=== PATIENT | female | born 1945 | race Caucasian/White ===

== ENCOUNTER 2018-08-08 00:38 | Emergency (ER) | payer OTHER, MEDICARE ==
--- NOTE | 2018-08-08 01:03 | EDM.PDOC ---
ED HPI GENERAL MEDICAL PROBLEM - General Chief Complaint: Lower Extremity Injury/Pain Stated Complaint: SWELLING IN LEGS PAIN Time Seen by Provider: 08/08/18 00:49 - History of Present Illness INITIAL COMMENTS - FREE TEXT/NARRATIVE: 72-year-old female presents emergency room brought in by family members with increasing lower extremity edema The patient has cardiomyopathy she is uncertain what type. Over the last couple of days she's had increasing lower extremity edema. It doesn't get whenever walking she has not having any increased breathing difficulties or shortness of breath no worsening cough. She's not had any associated chest pain chest pressure. The patient recently had her benazepril decreased from 20 mg twice a day to once a day and she supposed to have follow-up blood work for this it's plausible that this could be a trigger.. The patient's and cardiomyopathy for 35 years. She's next smoker does not use illicit drugs or alcohol. She is having no chest pain chest pressure or discomfort of any kind tonight. Lower Back Pain Score (Numeric/FACES): 9 - Related Data Allergies Allergy/AdvReac Type Severity Reaction Status Date / Time Unable to Assess Allergy Unverified 08/08/18 00:53 Home Meds: Home Meds Benazepril [Lotensin] 20 mg PO DAILY 08/08/18 [History] Cyclobenzaprine [Flexeril] 5 mg PO BID PRN 08/08/18 [History] Diltiazem HCl [Diltiazem ER] 45 mg PO 1200 08/08/18 [History] Diltiazem HCl [Diltiazem ER] 90 mg PO BID 08/08/18 [History] Furosemide [Lasix] 20 mg PO DAILY #7 tab 08/08/18 [Rx] Hydrocodone/Acetaminophen [[place] 10-325 Tablet] 2 tab PO BID 08/08/18 [History] Potassium Chloride [Klor-Con M20] 20 meq PO Q24H #7 tab.er 08/08/18 [Rx] Sulfamethoxazole/Trimethoprim [Bactrim Ds Tablet] 1 each PO BID PRN 08/08/18 [ History] Zolpidem [Ambien] 10 mg PO BEDTIME 08/08/18 [History] metFORMIN [Glucophage XR] 500 mg PO BIDMEALS 08/08/18 [History] Review of Systems - Review of Systems Review Of Systems: See Below Constitutional: Reports: No Symptoms Eyes: Reports: No Symptoms Ears: Reports: No Symptoms Nose: Reports: No Symptoms Mouth/Throat: Reports: No Symptoms Respiratory: Reports: No Symptoms Cardiovascular: Reports: Edema GI/Abdominal: Reports: No Symptoms Musculoskeletal: Reports: Other (Significant back problems and arthritis) Skin: Reports: No Symptoms Neurological: Reports: No Symptoms Psychiatric: Reports: No Symptoms ED EXAM, GENERAL - Physical Exam Exam: See Below Exam Limited By: No Limitations General Appearance: Alert, No Apparent Distress Nose: Normal Inspection Throat/Mouth: Normal Inspection, Normal Lips, Normal Gums, Normal Oropharynx, Normal Voice, No Airway Compromise Head: Atraumatic, Normocephalic Neck: Normal Inspection, Supple, Non-Tender, Full Range of Motion. No: Lymphadenopathy (L), Lymphadenopathy (R) Respiratory/Chest: No Respiratory Distress, Lungs Clear, Normal Breath Sounds Cardiovascular: Normal Peripheral Pulses, Regular Rate, Rhythm, No Edema, Other (She has pitting edema in her lower extremities from the knees on down this is very thin less than 1+) GI/Abdominal: Normal Bowel Sounds, Soft, Non-Tender Back Exam: Normal Inspection. No: CVA Tenderness (L), CVA Tenderness (R) Extremities: Normal Inspection, Other (She has some vague tenderness in her lower extremities mild pitting edema) Neurological: Alert, Oriented, Normal Cognition Course - Vital Signs Last Recorded V/S: Last Vital Signs Temp 36.4 C 08/08/18 00:47 Pulse 69 08/08/18 00:47 Resp 16 08/08/18 00:47 BP 198/75 H 08/08/18 00:47 Pulse Ox 93 L 08/08/18 00:47 - Orders/Labs/Meds Orders: Active Orders 24 hr Category Date Time Status EKG Documentation Completion [RC] STAT Care 08/08/18 01:12 Active Chest 1V Frontal [CR] Stat Exams 08/08/18 01:11 Taken Labs: Laboratory Tests 08/08/18 08/08/18 08/08/18 Range/Units 01:32 01:32 01:32 WBC 8.69 (3.98-10.04) K/mm3 RBC 3.96 L (3.98-5.22) M/mm3 Hgb 11.8 (11.2-15.7) gm/L Hct 34.9 (34.1-44.9) % MCV 88.1 (79.4-94.8) fl MCH 29.8 (25.6-32.2) pg MCHC 33.8 (32.2-35.5) g/dl RDW Std Deviation 40.2 (36.4-46.3) fL Plt Count 350 (182-369) K/mm3 MPV 8.9 L (9.4-12.3) fl Neutrophils % (Manual) 51 (40-60) % Band Neutrophils % 0 (0-10) % Lymphocytes % (Manual) 29 (20-40) % Atypical Lymphs % 0 % Monocytes % (Manual) 16 H (2-10) % Eosinophils % (Manual) 2 (0.7-5.8) % Basophils % (Manual) 2 H (0.1-1.2) Platelet Estimate Adequate Plt Morphology Comment Normal RBC Morph Comment Normal Sodium 135 L (136-145) mEq/L Potassium 3.5 (3.5-5.1) mEq/L Chloride 99 (98-107) mEq/L Carbon Dioxide 26 (21-32) mEq/L Anion Gap 13.5 (5-15) BUN 11 (7-18) mg/dL Creatinine 0.7 (0.55-1.02) mg/dL Est Cr Clr Drug Dosing TNP Estimated GFR (MDRD) > 60 (>60) mL/min BUN/Creatinine Ratio 15.7 (14-18) Glucose 194 H (83-115) mg/dL Calcium 9.6 (8.5-10.1) mg/dL Total Bilirubin 0.3 (0.2-1.0) mg/dL AST 16 (15-37) U/L ALT 23 (14-59) U/L Alkaline Phosphatase 65 (46-116) U/L Troponin I < 0.017 (0.00-0.056) ng/mL NT-Pro-B Natriuret Pep 392 H (0-125) pg/mL Total Protein 7.4 (6.4-8.2) g/dl Albumin 4.0 (3.4-5.0) g/dl Globulin 3.4 gm/dL Albumin/Globulin Ratio 1.2 (1-2) Meds: Medications Discontinued Medications Generic Name Dose Route Start Last Admin Trade Name Freq PRN Reason Stop Dose Admin Furosemide 40 mg 08/08/18 03:00 Lasix PO 08/08/18 03:01 ONETIME ONE Potassium Chloride 40 meq 08/08/18 03:00 Klor-Con M20 PO 08/08/18 03:01 ONETIME ONE - Re-Assessments/Exams Free Text/Narrative Re-Assessment/Exam: 08/08/18 03:04 Patient's proBNP is indeed elevated she does not want to stay any longer would like to go home her blood pressures up on to give her 40 mg by mouth Lasix and 40 mEq of potassium. Will have her take Lasix 20 mg and 20 mEq of potassium daily 1 week's worth have her follow-up with regular doctor as soon she can get in for blood pressure check. Departure - Departure Time of Disposition: 03:05 Disposition: Home, Self-Care 01 Clinical Impression: Heart failure - Discharge Information Prescriptions: Furosemide [Lasix] 20 mg PO DAILY #7 tab Potassium Chloride [Klor-Con M20] 20 meq PO Q24H #7 tab.er Referrals: Wili Gordillo Jr, MD [Primary Care Provider] - Forms: ED Department Discharge Additional Instructions: Return to the emergency room with any questions or problems or worsening symptoms. Follow-up with your regular provider at the end of this week her first part of next week. Take the medications as directed hold the furosemide and potassium if her blood pressure gets too low to upper number consistently below 120 - My Orders Last 24 Hours: My Active Orders 08/08/18 01:11 Chest 1V Frontal [CR] Stat 08/08/18 01:12 EKG Documentation Completion [RC] STAT - Assessment/Plan Last 24 Hours: My Active Orders 08/08/18 01:11 Chest 1V Frontal [CR] Stat 08/08/18 01:12 EKG Documentation Completion [RC] STAT
[2018-08-08] MEDS ORDERED: Potassium Chloride 20 MEQ Tab.ER PO ONE (03:00)
[2018-08-08] MEDS ORDERED: Furosemide 40 MG Tab PO ONE (03:00)
--- NOTE | 2018-08-08 08:56 | CR ---
Chest: Portable view of the chest was obtained. Comparison: No prior chest x-ray is available. Heart size and mediastinum are within normal limits. Lungs are clear with no acute-appearing parenchymal change. Small nodule is partially visualized within the left upper lung most likely representing costochondral calcification or less likely a granuloma. Lungs are slightly hyperinflated suggesting emphysematous change. Minimal scoliosis is noted within the spine. Impression: 1. Probable emphysematous change. 2. Other incidental findings. 3. Nothing acute is identified. Diagnostic code #2
== END 2018-08-08 03:18 | disposition home or self-care (01) ==
LOC: JD.ED 00:38
DX: I50.9 Heart failure, unspecified (principal); Z79.899 Other long term (current) drug therapy
CPT/HCPCS: 36415; 71045; 80053; 83880; 84484; 85007; 85027; 93005; 99285; A9270; 93010; 99283

== ENCOUNTER 2020-07-29 23:22 | Emergency (ER) | payer MEDICARE ==
--- NOTE | 2020-07-30 00:38 | EDM.PDOC ---
ED HPI GENERAL MEDICAL PROBLEM - General Chief Complaint: Gastrointestinal Problem Stated Complaint: DIARRHEA/VOMITTING/HEADACHE Time Seen by Provider: 07/30/20 00:28 - History of Present Illness INITIAL COMMENTS - FREE TEXT/NARRATIVE: 74-year-old female presents the emergency room with nausea diarrhea and not feeling well. She has developed a headache as well. Of note upon arrival here is her blood pressure is quite elevated. Patient states that her blood pressure is usually very well controlled and the numbers she recites agree with this, at present she is 231/96. She denies any chest pain or chest pressure or breathing difficulties. She complains of loose stools and generally not feeling well with some nausea and vomiting this started Sunday evening over 24 hours ago. - Related Data Allergies Allergy/AdvReac Type Severity Reaction Status Date / Time amlodipine Allergy Cannot Verified 07/30/20 03:24 Remember carbamazepine [From Tegretol] Allergy Cannot Verified 07/30/20 03:24 Remember codeine Allergy Cannot Verified 07/30/20 03:24 Remember diazepam [From Valium] Allergy Cannot Verified 07/30/20 03:24 Remember gabapentin [From Neurontin] Allergy Cannot Verified 07/30/20 03:24 Remember lisinopril Allergy Cannot Verified 07/30/20 03:24 Remember meclofenamic acid Allergy Cannot Verified 07/30/20 03:24 [From Meclomen] Remember methadone Allergy Cannot Verified 07/30/20 03:24 Remember NSAIDS (Non-Steroidal Allergy Cannot Verified 07/30/20 03:24 Anti-Inflamma Remember oxycodone Allergy Cannot Verified 07/30/20 03:24 Remember pentazocine [From Talwin] Allergy Cannot Verified 07/30/20 03:24 Remember tramadol [From Ultram] Allergy Cannot Verified 07/30/20 03:24 Remember trazodone Allergy Cannot Verified 07/30/20 03:24 Remember darvan Allergy Cannot Uncoded 07/30/20 03:24 Remember IV Contrast Allergy Cannot Uncoded 07/30/20 03:24 Remember repal Allergy Cannot Uncoded 07/30/20 03:24 Remember senequan Allergy Cannot Uncoded 07/30/20 03:24 Remember zomax Allergy Cannot Uncoded 07/30/20 03:24 Remember Home Meds: Home Meds Benazepril [Lotensin] 20 mg PO DAILY 08/08/18 [History] Cyclobenzaprine [Flexeril] 5 mg PO BID PRN 08/08/18 [History] Hydrocodone/Acetaminophen [[place] 10-325 Tablet] 2 tab PO BID 08/08/18 [History] Zolpidem [Ambien] 10 mg PO BEDTIME 08/08/18 [History] dilTIAZem HCL [Diltiazem ER] 45 mg PO 1200 08/08/18 [History] dilTIAZem HCL [Diltiazem ER] 90 mg PO BID 08/08/18 [History] metFORMIN [Glucophage XR] 500 mg PO BIDMEALS 08/08/18 [History] Levothyroxine [Synthroid] 88 mcg PO DAILY 07/30/20 [History] glipiZIDE [Glucotrol XL] 5 mg PO BID 07/30/20 [History] Past Medical History HEENT History: Reports: Cataract, Impaired Vision Cardiovascular History: Reports: Cardiomyopathy, Hypertension Other Cardiovascular History: Rheumatic heart disease Respiratory History: Reports: COPD Genitourinary History: Reports: Renal Disease, UTI, Recurrent Musculoskeletal History: Reports: Back Pain, Chronic Neurological History: Reports: CVA Endocrine/Metabolic History: Reports: Diabetes, Type II, Hypothyroidism - Infectious Disease History Infectious Disease History: Reports: Chicken Pox, Measles, Mumps, Rheumatic Fever - Past Surgical History HEENT Surgical History: Reports: Cataract Surgery GI Surgical History: Reports: Cholecystectomy, Other (See Below) Other GI Surgeries/Procedures: bladder lift surgery Female Surgical History: Reports: Hysterectomy, Tubal Ligation Neurological Surgical History: Reports: Lumbar Spine Musculoskeletal Surgical History: Reports: Other (See Below) Other Musculoskeletal Surgeries/Procedures:: fusion of the back, rods in back Social & Family History - Tobacco Use Tobacco Use Status *Q: Former Tobacco User Used Tobacco, but Quit: Yes Month/Year Tobacco Last Used: 2008 - Caffeine Use Caffeine Use: Reports: Coffee - Recreational Drug Use Recreational Drug Use: No ED ROS GENERAL - Review of Systems Review Of Systems: See Below Constitutional: Reports: No Symptoms HEENT: Reports: No Symptoms Respiratory: Reports: No Symptoms Cardiovascular: Reports: Blood Pressure Problem. Denies: Chest Pain, Dyspnea on Exertion Endocrine: Reports: No Symptoms GI/Abdominal: Reports: Nausea, Vomiting. Denies: Abdominal Pain, Constipation, Diarrhea : Reports: No Symptoms Musculoskeletal: Reports: No Symptoms Skin: Reports: No Symptoms Neurological: Reports: Headache. Denies: Dizziness, Seizure, Syncope, Trouble Speaking, Difficulty Walking, Change in Speech Psychiatric: Reports: No Symptoms Hematologic/Lymphatic: Reports: No Symptoms Immunologic: Reports: No Symptoms ED EXAM, GENERAL - Physical Exam Exam: See Below Exam Limited By: No Limitations General Appearance: Alert, No Apparent Distress, Other (Blood pressure on admission is 131/86) Eye Exam: Bilateral Eye: Normal Inspection Ears: Normal External Exam, Normal Canal, Hearing Grossly Normal, Normal TMs Nose: Normal Inspection, Normal Mucosa, No Blood Throat/Mouth: Normal Inspection, Normal Lips, Normal Gums, Normal Oropharynx, Normal Voice, No Airway Compromise Head: Atraumatic, Normocephalic Neck: Normal Inspection, Supple, Non-Tender, Full Range of Motion. No: Lymphadenopathy (L), Lymphadenopathy (R) Respiratory/Chest: No Respiratory Distress, Lungs Clear, Normal Breath Sounds Cardiovascular: Regular Rate, Rhythm, No Edema, No Murmur GI/Abdominal: Normal Bowel Sounds, Soft, Non-Tender Back Exam: No: CVA Tenderness (L), CVA Tenderness (R) Extremities: Normal Inspection, No Pedal Edema Neurological: Alert, Oriented, Normal Cognition Skin Exam: Warm, Dry, Intact #1 Interpretation EKG Date: 07/30/20 Rhythm: NSR [place]: Normal P-Wave: Present QRS: Other (Borderline intraventricular conduction delay) ST-T: Other (Minimal ST depression V4 V5) QT: Normal Comparison: No Change EKG Interpretation Comments: Abnormal EKG Course - Vital Signs Last Recorded V/S: Last Vital Signs Temp 36.2 C 07/29/20 23:35 Pulse 96 07/30/20 06:27 Resp 16 07/30/20 06:27 BP 145/77 H 07/30/20 06:27 Pulse Ox 97 07/30/20 06:27 - Orders/Labs/Meds Orders: Active Orders 24 hr Category Date Time Status Blood Glucose Check, Bedside [RC] ONETIME Care 07/30/20 01:01 Active EKG Documentation Completion [RC] STAT Care 07/30/20 00:57 Active Head wo Cont [CT] Stat Exams 07/30/20 02:54 Taken Sodium Chloride 0.9% [Normal Saline] 1,000 ml Med 07/30/20 03:00 Active IV ASDIRECTED Medication Orders Sodium Chloride (Normal Saline) 1,000 mls @ 100 mls/hr IV ASDIRECTED ZOE Last Admin: 07/30/20 03:07 Dose: 100 mls/hr Documented by: [email or web address] Labs: Laboratory Tests 07/30/20 07/30/20 07/30/20 Range/Units 00:43 00:50 00:50 WBC 10.38 H (3.98-10.04) K/mm3 RBC 4.51 (3.98-5.22) M/mm3 Hgb 13.0 (11.2-15.7) gm/dl Hct 37.2 (34.1-44.9) % MCV 82.5 D (79.4-94.8) fl MCH 28.8 (25.6-32.2) pg MCHC 34.9 (32.2-35.5) g/dl RDW Std Deviation 36.7 (36.4-46.3) fL Plt Count 400 H (182-369) K/mm3 MPV 8.8 L (9.4-12.3) fl Neut % (Auto) 72.2 H (34.0-71.1) % Lymph % (Auto) 17.2 L (19.3-51.7) % [place] % (Auto) 9.1 (4.7-12.5) % Eos % (Auto) 1.0 (0.7-5.8) Baso % (Auto) 0.3 (0.1-1.2) % Neut # (Auto) 7.50 H (1.56-6.13) K/mm3 Lymph # (Auto) 1.79 (1.18-3.74) K/mm3 [place] # (Auto) 0.94 H (0.24-0.36) K/mm3 Eos # (Auto) 0.10 (0.04-0.36) K/mm3 Baso # (Auto) 0.03 (0.01-0.08) K/mm3 Manual Slide Review Normal smear PT 10.6 (9.7-12.0) SECONDS INR 0.99 APTT 25.2 (21.7-31.4) SECONDS Sodium (136-145) mEq/L Potassium (3.5-5.1) mEq/L Chloride (98-107) mEq/L Carbon Dioxide (21-32) mEq/L Anion Gap (5-15) BUN (7-18) mg/dL Creatinine (0.55-1.02) mg/dL Est Cr Clr Drug Dosing Estimated GFR (MDRD) (>60) mL/min BUN/Creatinine Ratio (14-18) Glucose (70-99) mg/dL POC Glucose 250 H (70-99) mg/dL Calcium (8.5-10.1) mg/dL Total Bilirubin (0.2-1.0) mg/dL AST (15-37) U/L ALT (14-59) U/L Alkaline Phosphatase (46-116) U/L Troponin I (0.00-0.056) ng/mL Total Protein (6.4-8.2) g/dl Albumin (3.4-5.0) g/dl Globulin gm/dL Albumin/Globulin Ratio (1-2) Urine Color (Yellow) Urine Appearance (Clear) Urine pH (5.0-8.0) Ur Specific [place] (1.005-1.030) Urine Protein (Negative) Urine Glucose (UA) (Negative) Urine Ketones (Negative) Urine Occult Blood (Negative) Urine Nitrite (Negative) Urine Bilirubin (Negative) Urine Urobilinogen (0.2-1.0) Ur Leukocyte Esterase (Negative) Urine RBC (0-5) /hpf Urine WBC (0-5) /hpf Ur Squamous Epith Cells (0-5) /hpf Urine Bacteria (FEW) /hpf Urine Mucus (FEW) /hpf 07/30/20 07/30/20 Range/Units 00:50 02:00 WBC (3.98-10.04) K/mm3 RBC (3.98-5.22) M/mm3 Hgb (11.2-15.7) gm/dl Hct (34.1-44.9) % MCV (79.4-94.8) fl MCH (25.6-32.2) pg MCHC (32.2-35.5) g/dl RDW Std Deviation (36.4-46.3) fL Plt Count (182-369) K/mm3 MPV (9.4-12.3) fl Neut % (Auto) (34.0-71.1) % Lymph % (Auto) (19.3-51.7) % [place] % (Auto) (4.7-12.5) % Eos % (Auto) (0.7-5.8) Baso % (Auto) (0.1-1.2) % Neut # (Auto) (1.56-6.13) K/mm3 Lymph # (Auto) (1.18-3.74) K/mm3 [place] # (Auto) (0.24-0.36) K/mm3 Eos # (Auto) (0.04-0.36) K/mm3 Baso # (Auto) (0.01-0.08) K/mm3 Manual Slide Review PT (9.7-12.0) SECONDS INR APTT (21.7-31.4) SECONDS Sodium 124 L D (136-145) mEq/L Potassium 3.3 L (3.5-5.1) mEq/L Chloride 85 L D (98-107) mEq/L Carbon Dioxide 25 (21-32) mEq/L Anion Gap 17.3 H (5-15) BUN 6 L (7-18) mg/dL Creatinine 0.8 (0.55-1.02) mg/dL Est Cr Clr Drug Dosing TNP Estimated GFR (MDRD) > 60 (>60) mL/min BUN/Creatinine Ratio 7.5 L (14-18) Glucose 248 H (70-99) mg/dL POC Glucose (70-99) mg/dL Calcium 9.1 (8.5-10.1) mg/dL Total Bilirubin 0.4 (0.2-1.0) mg/dL AST 15 (15-37) U/L ALT 20 (14-59) U/L Alkaline Phosphatase 63 (46-116) U/L Troponin I < 0.017 (0.00-0.056) ng/mL Total Protein 8.3 H (6.4-8.2) g/dl Albumin 4.4 (3.4-5.0) g/dl Globulin 3.9 gm/dL Albumin/Globulin Ratio 1.1 (1-2) Urine Color Light yellow (Yellow) Urine Appearance Clear (Clear) Urine pH 7.0 (5.0-8.0) Ur Specific [place] 1.025 (1.005-1.030) Urine Protein 2+ H (Negative) Urine Glucose (UA) 1+ H (Negative) Urine Ketones 1+ H (Negative) Urine Occult Blood Trace-intact H (Negative) Urine Nitrite Negative (Negative) Urine Bilirubin Negative (Negative) Urine Urobilinogen 0.2 (0.2-1.0) Ur Leukocyte Esterase Negative (Negative) Urine RBC 0-5 (0-5) /hpf Urine WBC Not seen (0-5) /hpf Ur Squamous Epith Cells Not seen (0-5) /hpf Urine Bacteria Rare (FEW) /hpf Urine Mucus Not seen (FEW) /hpf Meds: Medications Generic Name Dose Route Start Last Admin Trade Name Freq PRN Reason Stop Dose Admin Sodium Chloride 1,000 mls @ 100 mls/hr 07/30/20 03:00 07/30/20 03:07 Normal Saline IV 100 mls/hr ASDIRECTED ZOE Administration Discontinued Medications Generic Name Dose Route Start Last Admin Trade Name Freq PRN Reason Stop Dose Admin Hydrocodone Bitart/Acetaminophen 1 tab 07/30/20 05:32 07/30/20 05:47 Acetaminophen/Hydrocodone 325-10 Mg Tab PO 07/30/20 05:33 1 tab ONETIME ONE Administration Enalaprilat 0.625 mg 07/30/20 01:20 07/30/20 01:32 Enalaprilat 1.25 Mg/Ml Sdv IVPUSH 07/30/20 01:21 0.625 mg ONETIME ONE Administration Enalaprilat 0.625 mg 07/30/20 02:53 07/30/20 03:07 Enalaprilat 1.25 Mg/Ml Sdv IVPUSH 07/30/20 02:54 0.625 mg ONETIME ONE Administration Enalaprilat 0.625 mg 07/30/20 03:49 07/30/20 03:58 Enalaprilat 1.25 Mg/Ml Sdv IVPUSH 07/30/20 03:50 0.625 mg ONETIME ONE Administration Hydralazine HCl 10 mg 07/30/20 05:37 07/30/20 05:44 Hydralazine 20 Mg/Ml Sdv IVPUSH 07/30/20 05:38 10 mg ONETIME ONE Administration Labetalol HCl 10 mg 07/30/20 00:57 07/30/20 01:37 Labetalol 100 Mg/20 Ml Mdv IVPUSH 07/30/20 00:58 Not Given ONETIME ONE Protocol Ondansetron HCl 4 mg 07/30/20 01:43 07/30/20 02:00 Ondansetron 4 Mg/2 Ml Sdv IVPUSH 07/30/20 01:44 4 mg ONETIME ONE Administration Ondansetron HCl 4 mg 07/30/20 05:30 07/30/20 05:40 Ondansetron 4 Mg/2 Ml Sdv IVPUSH 07/30/20 05:31 4 mg ONETIME ONE Administration Potassium Chloride 40 meq 07/30/20 02:56 07/30/20 03:07 Potassium Chloride 20 Meq Tab.Er PO 07/30/20 02:57 40 meq ONETIME ONE Administration - Re-Assessments/Exams Free Text/Narrative Re-Assessment/Exam: 07/30/20 03:51 Patient has had 2 rounds of enalaprilat 0.625 mg without much success we will try a third round of this. Initially wanted to use labetalol but the family and the patient was resistant to this with her multiple allergies the patient takes benazepril without difficulty however in her allergy list lisinopril shows up. Thus far she has tolerated the enalaprilat. Labs show a low potassium she is given 40 mEq of oral potassium. Renal function is good. 07/30/20 05:43 Patient has had 3 doses of enalaprilat with a subtle reduction in blood pressure not much we will try 10 mg of hydralazine. Patient is starting to complain of pain she normally uses [place] 10/325. We will give another Zofran and some [place]. 07/30/20 06:24 Patient is doing better after the hydralazine she also received some pain medication but this should just be starting to work now. Last blood pressure showed a systolic of 145 07/30/20 07:12 Patient is doing much better at this time and she is insistent on going home. She will not consider staying in the hospital she just wants to go home. I discussed this with her she will resume her routine medications as before. Follow-up with your regular doctor for recheck early this next week. Departure - Departure Time of Disposition: 07:13 Disposition: Home, Self-Care 01 Clinical Impression: Severe hypertension, Headache, Nausea - Discharge Information Referrals: Tianna Singer NP [Primary Care Provider] - Forms: ED Department Discharge Additional Instructions: Return to the emergency room with any questions problems or worsening symptoms. Follow-up with your regular healthcare provider early this next week. Go home and get plenty of rest. Resume your routine medications as before. I suspect some of the problems you experience this evening could be related to the fact that you are not keeping your blood pressure medication down. It may take some time for all this to normalize. Sepsis Event Note (ED) - Evaluation Sepsis Screening Result: No Definite Risk - Focused Exam Vital Signs: Vital Signs Temp Pulse Resp BP BP Pulse Ox 07/30/20 06:27 96 16 145/77 H 97 07/30/20 03:58 210/92 H 07/30/20 03:07 198/83 H 07/30/20 01:32 220/96 H 07/29/20 23:35 36.2 C 69 20 231/86 H 97 - My Orders Last 24 Hours: My Active Orders 07/30/20 00:57 EKG Documentation Completion [RC] STAT 07/30/20 01:01 Blood Glucose Check, Bedside [RC] ONETIME 07/30/20 02:54 Head wo Cont [CT] Stat 07/30/20 03:00 Sodium Chloride 0.9% [Normal Saline] 1,000 ml IV ASDIRECTED - Assessment/Plan Last 24 Hours: My Active Orders 07/30/20 00:57 EKG Documentation Completion [RC] STAT 07/30/20 01:01 Blood Glucose Check, Bedside [RC] ONETIME 07/30/20 02:54 Head wo Cont [CT] Stat 07/30/20 03:00 Sodium Chloride 0.9% [Normal Saline] 1,000 ml IV ASDIRECTED
[2020-07-30] MEDS ORDERED: Labetalol 100 MG/20 ML MDV IVPUSH ONE (00:57)
[2020-07-30] MEDS ORDERED: Enalaprilat 1.25 MG/ML SDV IVPUSH ONE ×3 (01:20→03:49)
[2020-07-30] MEDS ORDERED: Ondansetron 4 MG/2 ML SDV IVPUSH ONE ×2 (01:43→05:30)
[2020-07-30] MEDS ORDERED: Potassium Chloride 20 MEQ Tab.ER PO ONE (02:56)
[2020-07-30] MEDS ORDERED: Sodium Chloride 0.9% 1,000 ML IV SCH (03:00)
[2020-07-30] MEDS ORDERED: Acetaminophen/HYDROcodone 325-10 MG Tab PO ONE (05:32)
[2020-07-30] MEDS ORDERED: hydrALAZINE 20 MG/ML SDV IVPUSH ONE (05:37)
--- NOTE | 2020-07-30 08:18 | CT ---
Head CT Technique: Multiple axial sections through the brain were obtained. Intravenous contrast was not utilized. Comparison: No prior intracranial imaging is available. Findings: Ventricles along with basal cisterns and sulci over the convexities are within normal limits for the patient's age. No abnormal parenchymal densities are seen. No evidence of intracranial hemorrhage. No midline shift or mass-effect is appreciated. Bone window settings were reviewed. Visualized paranasal sinuses show a small osteosclerotic area within the left ethmoid sinus compatible with small benign lesion. Visualized mastoid sinuses and other paranasal sinuses show nothing acute. Impression: 1. Incidental sinus finding within the right ethmoid region. 2. No acute intracranial abnormality is appreciated. Diagnostic code #2 I agree with preliminary report from [facility] finalized on 07/30/20, 4:40 AM, code 1
== END 2020-07-30 07:36 | disposition home or self-care (01) ==
LOC: JD.ED 23:22
DX: I10 Essential (primary) hypertension (principal); J44.9 Chronic obstructive pulmonary disease, unspecified; E11.9 Type 2 diabetes mellitus without complications; E03.9 Hypothyroidism, unspecified; Z88.8 Allergy status to other drugs, medicaments and biological substances; Z88.5 Allergy status to narcotic agent; Z91.041 Radiographic dye allergy status; Z79.899 Other long term (current) drug therapy; Z86.73 Personal history of transient ischemic attack (TIA), and cerebral infarction without residual deficits; Z87.891 Personal history of nicotine dependence; Z79.84 Long term (current) use of oral hypoglycemic drugs
CPT/HCPCS: 36415; 70450; 80053; 81001; 82947; 84484; 85025; 85610; 85730; 93005; 96374; 96375; 96376; 99284; A9270; J0360; J2405; J7030; 93010

== ENCOUNTER 2022-05-16 15:45 | Emergency (ER) | payer MEDICARE ==
[2022-05-16 17:14] LABS: HEMOGLOBIN A1C 6.6 %
== END 2022-05-16 18:09 | disposition home or self-care (01) ==
LOC: JD.ED 15:45
DX: N30.00 Acute cystitis without hematuria (principal); E11.9 Type 2 diabetes mellitus without complications; J44.9 Chronic obstructive pulmonary disease, unspecified; E03.9 Hypothyroidism, unspecified; Z79.84 Long term (current) use of oral hypoglycemic drugs; Z79.899 Other long term (current) drug therapy; Z86.73 Personal history of transient ischemic attack (TIA), and cerebral infarction without residual deficits; Z88.5 Allergy status to narcotic agent; Z88.8 Allergy status to other drugs, medicaments and biological substances; Z88.6 Allergy status to analgesic agent; Z91.041 Radiographic dye allergy status
CPT/HCPCS: 36415; 80053; 81001; 82947; 83036; 85025; 86140; 87086; 87088; 87186; 93005; 93010; 99284; 99285

== ENCOUNTER 2022-06-18 16:44 | Emergency (ER) | payer MEDICARE ==
[2022-06-18] MEDS ORDERED: Sodium Chloride 0.9% 10 ML Syringe FLUSH PRN (17:14)
== END 2022-06-18 19:55 | disposition home or self-care (01) ==
LOC: JD.ED 16:44
DX: I50.9 Heart failure, unspecified (principal); D64.9 Anemia, unspecified; J44.9 Chronic obstructive pulmonary disease, unspecified; E11.9 Type 2 diabetes mellitus without complications; E03.9 Hypothyroidism, unspecified; Z86.73 Personal history of transient ischemic attack (TIA), and cerebral infarction without residual deficits; Z91.041 Radiographic dye allergy status; Z88.5 Allergy status to narcotic agent; Z88.8 Allergy status to other drugs, medicaments and biological substances; Z79.899 Other long term (current) drug therapy; Z79.84 Long term (current) use of oral hypoglycemic drugs
CPT/HCPCS: 36415; 71045; 80053; 81003; 83880; 84484; 85025; 86140; 93005; 99285; J3490; 93010; 99284

== ENCOUNTER 2022-07-22 16:09 | Emergency (ER) | payer MEDICARE ==
[2022-07-22] MEDS ORDERED: Sodium Chloride 0.9% 10 ML Syringe FLUSH PRN (16:57)
[2022-07-22 17:13] LABS: APPEARANCE,URINE CLEAR (Clear); BILIRUBIN,URINE NEGATIVE (Negative); COLOR,URINE YELLOW (Yellow); GLUCOSE,URINE NEGATIVE (Negative); KETONES,URINE NEGATIVE (Negative); LEUKOCYTE ESTERASE,URINE NEGATIVE (Negative); NITRITE,URINE NEGATIVE (Negative); OCCULT BLOOD,URINE NEGATIVE (Negative); PH,URINE 7.5 (5.0-8.0); PROTEIN,URINE NEGATIVE (Negative); UROBILINOGEN,URINE 0.2 (0.2-1.0)
[2022-07-22 17:47] LABS: BASOPHILS ABSOLUTE AUTO 0.02 K/mm3 (0.01-0.08); BASOPHILS PERCENT AUTO 0.2 % (0.1-1.2); EOSINOPHILS ABSOLUTE AUTO 0.09 K/mm3 (0.04-0.36); EOSINOPHILS PERCENT AUTO 0.9 (0.7-5.8); HEMATOCRIT 31.9 % (34.1-44.9); HEMOGLOBIN 9.9 gm/dl (11.2-15.7); IMMATURE GRAN ABSOLUTE AUTO 0.02 K/mm3 (0.00-0.10); IMMATURE GRAN PERCENT AUTO 0.2 % (<=1.0); LYMPHOCYTES ABSOLUTE AUTO 1.89 K/mm3 (1.18-3.74); LYMPHOCYTES PERCENT AUTO 18.6 % (19.3-51.7); MEAN CORPUSCULAR HEMOGLOBIN 23.8 pg (25.6-32.2); MEAN CORPUSCULAR VOLUME 76.7 fl (79.4-94.8); MEAN PLATELET VOLUME 8.7 fl (9.4-12.3); MONOCYTES ABSOLUTE AUTO 1.03 K/mm3 (0.24-0.36); MONOCYTES PERCENT AUTO 10.1 % (4.7-12.5); PLATELET COUNT,PLT 548 K/mm3 (182-369); RED BLOOD CELL COUNT 4.16 M/mm3 (3.98-5.22); WHITE BLOOD CELL COUNT,WBC 10.15 K/mm3 (3.98-10.04)
[2022-07-22 18:08] LABS: A/G RATIO 0.7 (1-2); ALBUMIN 3.2 g/dl (3.4-5.0); ANION GAP 13.7 (5-15); BILIRUBIN TOTAL 0.2 mg/dL (0.2-1.0); BUN/CREATININE RATIO 11.7 (14-18); CALCIUM 8.9 mg/dL (8.5-10.1); CREATININE 0.6 mg/dL (0.55-1.02); EST CRCL DRUG DOSING (CG) 74.67 mL/min; POTASSIUM,K 3.7 mEq/L (3.5-5.1); PROTEIN TOTAL,TP 7.8 g/dl (6.4-8.2)
== END 2022-07-22 20:23 | disposition home or self-care (01) ==
LOC: JD.ED 16:09
DX: I50.9 Heart failure, unspecified (principal); D64.9 Anemia, unspecified; L03.115 Cellulitis of right lower limb; J44.9 Chronic obstructive pulmonary disease, unspecified; E11.9 Type 2 diabetes mellitus without complications; E03.9 Hypothyroidism, unspecified; Z86.73 Personal history of transient ischemic attack (TIA), and cerebral infarction without residual deficits; Z79.84 Long term (current) use of oral hypoglycemic drugs; Z79.899 Other long term (current) drug therapy; Z88.5 Allergy status to narcotic agent; Z91.041 Radiographic dye allergy status; Z88.8 Allergy status to other drugs, medicaments and biological substances; Z88.6 Allergy status to analgesic agent
CPT/HCPCS: 36415; 71045; 80053; 81003; 83880; 84484; 85025; 86140; 93005; 99285; J3490; 93010; 99284

== ENCOUNTER 2022-09-11 13:52 | Emergency (ER) | payer MEDICARE ==
[2022-09-11 16:32] LABS: BASOPHILS ABSOLUTE AUTO 0.02 K/mm3 (0.01-0.08); BASOPHILS PERCENT AUTO 0.2 % (0.1-1.2); EOSINOPHILS ABSOLUTE AUTO 0.04 K/mm3 (0.04-0.36); EOSINOPHILS PERCENT AUTO 0.4 (0.7-5.8); HEMATOCRIT 34.9 % (34.1-44.9); IMMATURE GRAN ABSOLUTE AUTO 0.03 K/mm3 (0.00-0.10); IMMATURE GRAN PERCENT AUTO 0.3 % (<=1.0); LYMPHOCYTES ABSOLUTE AUTO 1.64 K/mm3 (1.18-3.74); LYMPHOCYTES PERCENT AUTO 14.8 % (19.3-51.7); MEAN CORPUSCULAR HEMOGLOBIN 25.5 pg (25.6-32.2); MEAN CORPUSCULAR HGB CONC 31.5 g/dl (32.2-35.5); MEAN CORPUSCULAR VOLUME 80.8 fl (79.4-94.8); MEAN PLATELET VOLUME 9.2 fl (9.4-12.3); MONOCYTES ABSOLUTE AUTO 1.28 K/mm3 (0.24-0.36); MONOCYTES PERCENT AUTO 11.5 % (4.7-12.5); NEUTROPHILS ABSOLUTE AUTO 8.09 K/mm3 (1.56-6.13); NEUTROPHILS PERCENT AUTO 72.8 % (34.0-71.1); PLATELET COUNT,PLT 469 K/mm3 (182-369); RED BLOOD CELL COUNT 4.32 M/mm3 (3.98-5.22)
[2022-09-11 16:38] LABS: A/G RATIO 0.7 (1-2); ALBUMIN 2.8 g/dl (3.4-5.0); ANION GAP 13.7 (5-15); BILIRUBIN TOTAL 0.3 mg/dL (0.2-1.0); BUN/CREATININE RATIO 13.3 (14-18); CALCIUM 8.3 mg/dL (8.5-10.1); CREATININE 0.6 mg/dL (0.55-1.02); EST CRCL DRUG DOSING (CG) 74.67 mL/min; POTASSIUM,K 3.7 mEq/L (3.5-5.1)
[2022-09-11 17:24] LABS: APPEARANCE,URINE CLEAR (Clear); BILIRUBIN,URINE NEGATIVE (Negative); COLOR,URINE YELLOW (Yellow); GLUCOSE,URINE NEGATIVE (Negative); KETONES,URINE 1+ (Negative); LEUKOCYTE ESTERASE,URINE NEGATIVE (Negative); NITRITE,URINE NEGATIVE (Negative); OCCULT BLOOD,URINE NEGATIVE (Negative); PROTEIN,URINE NEGATIVE (Negative); UROBILINOGEN,URINE 0.2 (0.2-1.0)
== END 2022-09-11 19:21 | disposition home or self-care (01) ==
LOC: JD.ED 13:52
DX: M79.652 Pain in left thigh (principal); J44.9 Chronic obstructive pulmonary disease, unspecified; E11.9 Type 2 diabetes mellitus without complications; E03.9 Hypothyroidism, unspecified; Z79.899 Other long term (current) drug therapy; Z88.8 Allergy status to other drugs, medicaments and biological substances; Z88.5 Allergy status to narcotic agent; Z88.6 Allergy status to analgesic agent; Z91.041 Radiographic dye allergy status; Z79.84 Long term (current) use of oral hypoglycemic drugs
CPT/HCPCS: 36415; 73502-26-LT; 73502-LT; 73562-26-LT; 73562-LT; 80053; 81003; 83880; 85025; 99283

== ENCOUNTER 2023-01-02 22:51 | Emergency (ER) | payer MEDICARE ==
[2023-01-02] MEDS ORDERED: Sodium Chloride 0.9% 500 ML IV ONE (23:31)
[2023-01-02 23:47] LABS: BASOPHILS PERCENT AUTO 0.5 % (0.0-1.0); EOSINOPHILS ABSOLUTE AUTO 0.1 K/mm3 (0.0-0.4); EOSINOPHILS PERCENT AUTO 0.7 % (0.0-6.0); HEMATOCRIT 33.9 % (37.0-47.0); HEMOGLOBIN 11.5 gm/dl (12.0-16.0); IMMATURE GRAN ABSOLUTE AUTO 0.03 K/mm3 (0.00-0.05); IMMATURE GRAN PERCENT AUTO 0.4 % (0.0-0.4); LYMPHOCYTES PERCENT AUTO 26.9 % (24.0-44.0); MEAN CORPUSCULAR HEMOGLOBIN 29.9 pg (28.0-32.0); MEAN CORPUSCULAR HGB CONC 33.9 g/dl (32.0-36.0); MEAN CORPUSCULAR VOLUME 88.3 fl (83.0-99.0); MEAN PLATELET VOLUME 8.6 fl (9.4-12.3); MONOCYTES ABSOLUTE AUTO 0.8 K/mm3 (0.0-0.8); MONOCYTES PERCENT AUTO 11.2 % (0.0-8.0); NEUTROPHILS ABSOLUTE AUTO 4.4 K/mm3 (1.8-7.7); NEUTROPHILS PERCENT AUTO 60.3 % (41.0-71.0); PLATELET COUNT,PLT 400 K/mm3 (150-400); RED BLOOD CELL COUNT 3.84 M/mm3 (4.10-5.30); WHITE BLOOD CELL COUNT,WBC 7.35 K/mm3 (3.9-11.3)
[2023-01-03 00:09] LABS: A/G RATIO 0.6 (1-2); ALANINE AMINOTRANSFERASE,ALT 11 U/L (14-59); ALBUMIN 2.7 g/dl (3.4-5.0); ALKALINE PHOSPHATASE 87 U/L (46-116); ANION GAP 12.5 (5-15); ASPARTATE AMNIOTRANSFERASE,AST 12 U/L (15-37); BILIRUBIN TOTAL 0.2 mg/dL (0.2-1.0); BLOOD UREA NITROGEN,BUN 17 mg/dL (7-18); BUN/CREATININE RATIO 21.3 (14-18); CALCIUM 8.3 mg/dL (8.5-10.1); CARBON DIOXIDE,CO2 26 mEq/L (21-32); CHLORIDE,CL 94 mEq/L (98-107); CREATININE 0.8 mg/dL (0.55-1.02); ESTIMATED GFR 76 mL/min (>60); POTASSIUM,K 3.5 mEq/L (3.5-5.1); SODIUM,NA 129 mEq/L (136-145)
[2023-01-03 00:13] LABS: GLUCOSE RANDOM 449 mg/dL (70-99)
[2023-01-03] MEDS ORDERED: Insulin Regular, Human 100 Units/ML 3 ML Vial IV ONE (00:49)
[2023-01-03 00:52] LABS: APPEARANCE,URINE CLEAR (Clear); BILIRUBIN,URINE NEGATIVE (Negative); COLOR,URINE YELLOW (Yellow); GLUCOSE,URINE 3+ (Negative); KETONES,URINE NEGATIVE (Negative); LEUKOCYTE ESTERASE,URINE NEGATIVE (Negative); NITRITE,URINE NEGATIVE (Negative); OCCULT BLOOD,URINE NEGATIVE (Negative); PROTEIN,URINE NEGATIVE (Negative); UROBILINOGEN,URINE 0.2 (0.2-1.0)
[2023-01-03 00:58] LABS: BACTERIA,URINE FEW /hpf (FEW); EPITHELIAL CELLS,URINE 0-5 /hpf (0-5); MUCUS,URINE NOT SEEN /hpf (FEW); RBC,URINE 0-5 /hpf (0-5); WBC,URINE 0-5 /hpf (0-5)
== END 2023-01-03 02:26 | disposition home or self-care (01) ==
LOC: JD.ED 22:51
DX: E11.65 Type 2 diabetes mellitus with hyperglycemia (principal); R53.1 Weakness; J44.9 Chronic obstructive pulmonary disease, unspecified; E11.9 Type 2 diabetes mellitus without complications; E03.9 Hypothyroidism, unspecified; Z88.8 Allergy status to other drugs, medicaments and biological substances; Z88.5 Allergy status to narcotic agent; Z91.041 Radiographic dye allergy status
CPT/HCPCS: 36415; 73502; 80053; 81001; 82947; 85025; 96360; 99285; J7030; 99284; J1815-GY